=== PATIENT | male | born 1985 | race Caucasian/White ===

== ENCOUNTER 2017-05-15 17:19 | Outpatient (CLI) | payer OTHER | END 2017-05-15 17:20 | disposition home or self-care (01) | LOC: LAB 17:19 | PROVIDERS: ATTEND Physician Assistant Medical | DX: Z13.89 Encounter for screening for other disorder (principal) | CPT/HCPCS: 86317; 86787 ==

== ENCOUNTER 2017-05-28 10:18 | Outpatient (CLI) | payer OTHER | END 2017-05-28 10:19 | disposition home or self-care (01) | LOC: LAB 10:18 | PROVIDERS: ATTEND Physician Assistant Medical | DX: Z13.89 Encounter for screening for other disorder (principal); Z11.1 Encounter for screening for respiratory tuberculosis | CPT/HCPCS: 36415; 81599; 86480 ==

== ENCOUNTER 2018-05-12 18:07 | Outpatient (CLI) | payer MEDICAID, OTHER | END 2018-05-12 18:08 | disposition home or self-care (01) | LOC: LAB 18:07 | PROVIDERS: ATTEND Physician Assistant Medical | DX: Z11.1 Encounter for screening for respiratory tuberculosis (principal) | CPT/HCPCS: 81599; 86480 ==

== ENCOUNTER 2018-12-30 12:32 | Outpatient (CLI) | payer OTHER, MEDICAID ==
--- NOTE | 2018-12-31 00:32 | XRAY Report ---
Reason: SUBACROMIAL BURSITIS, RIGHT Procedure Date: 12/30/2018 Accession Number: [id number] / [id number] Procedure: XR - Shoulder 3 View RT CPT Code: FULL RESULT: EXAM: RIGHT SHOULDER RADIOGRAPHY EXAM DATE: 12/30/2018 11:27 AM. CLINICAL HISTORY: SUBACROMIAL BURSITIS, RIGHT. COMPARISON: None. TECHNIQUE: 3 views. FINDINGS: Bones: Normal. No fracture or bone lesion. Joints: The glenohumeral and acromioclavicular joints are normal. Soft tissues: The visualized hemithorax is unremarkable. No soft tissue swelling. IMPRESSION: Normal shoulder radiography. [facility]
--- NOTE | 2018-12-31 05:24 | XRAY Report ---
Reason: SUBACROMIAL BURSITIS,RT Procedure Date: 12/30/2018 Accession Number: [id number] / [id number] Procedure: XR - Cervical Spine Complete CPT Code: FULL RESULT: EXAM: CERVICAL SPINE RADIOGRAPHY EXAM DATE: 12/30/2018 11:27 AM. CLINICAL HISTORY: SUBACROMIAL BURSITIS,RT. COMPARISONS: None. TECHNIQUE: 5 views. FINDINGS: Alignment: Normal. No spondylolisthesis or scoliosis. Bones: The cervical vertebral bodies and posterior elements are well-visualized from the skull base through C7-T1. No fractures or bone lesions. Disks: Minimal degenerative disk disease at C4-C5. Facets: No degenerative disease. Neural Foramina: The neural foramina have bony patency bilaterally. Soft Tissues: Normal. No prevertebral soft tissue swelling. The visualized lung apices are clear. IMPRESSION: Minimal degenerative disk disease at C4-C5. [facility]
== END 2018-12-30 12:33 | disposition home or self-care (01) ==
LOC: DI 12:32
PROVIDERS: ATTEND Family Medicine
DX: M75.51 Bursitis of right shoulder (principal); M50.321 Other cervical disc degeneration at C4-C5 level
CPT/HCPCS: 72050